=== PATIENT | female | born 1995 | race American Indian/Alaskan Native ===

== ENCOUNTER 2017-08-13 19:50 | Emergency (ER) | payer MEDICAID ==
[2017-08-13] MEDS ORDERED: TYLENOL PO ONE (21:35)
[2017-08-13 21:54] LABS: Basophils % (Auto) 0.7 % (0.0-1.8); Eosinophils % (Auto) 2.5 % (0.0-4.3); Hematocrit 32.8 % (30.3-42.9); Mean Corpuscular HGB Conc 34 % (30-34); Mean Corpuscular Hemoglobin 29 pg (28-32); Mean Corpuscular Volume 87 fl (79-97); Platelet Count 229 K/mm3 (140-440); Red Blood Count 3.76 M/mm3 (3.65-5.03); Red Cell Distribution Width 15.1 % (13.2-15.2); White Blood Count 8.3 K/mm3 (4.5-11.0)
[2017-08-13 22:22] LABS: Bilirubin,Urine NEG (Negative); Blood,Urine NEG (Negative); Ketones,Urine NEG (Negative); Leukocyte Esterase,Urine MOD (Negative); Mucus,Urine FEW /HPF; Nitrite,Urine NEG (Negative); Urobilinogen,Urine < 2.0 mg/dL (<2.0)
--- NOTE | 2017-08-13 22:47 | Emergency Department Report ---
ED Abdominal Pain HPI - General Chief Complaint: Abdominal Pain Stated Complaint: ABD PAIN Time Seen by Provider: 08/13/17 21:27 Source: patient, EMS Mode of arrival: Stretcher Limitations: No Limitations - History of Present Illness Initial Comments: pt is 9 weeks presents for abdominal urinary frequency and urgency seen by [facility]BG[facility], advised intact nothing was wrong, no states urinary frequency urgency and burning with urinations x 2 days pt denies vaginal bleeding no vaginal pain no pelvic pain no fever chills or n/ MD Complaint: abdominal pain Onset/Timin -: days(s) Location: L flank Radiation: L flank Migration to: L flank Severity: moderate Severity scale (0 -10): 6 Quality: aching Consistency: intermittent Improves With: nothing Worsens With: other (voiding ) Associated Symptoms: denies: nausea, vomiting, diarrhea, fever, chills, constipation, dysuria, hematemesis, hematochezia, melena, hematuria, anorexia, syncope - Related Data LMP (females 10-50): 2 months Previous Rx's Medication Instructions Recorded Last Taken Type Cephalexin [Keflex] 500 mg PO Q12HR #20 cap 08/13/17 Unknown Rx Allergies Allergy/AdvReac Type Severity Reaction Status Date / Time No Known Allergies Allergy Verified 11/23/14 06:43 ED Review of Systems ROS: Stated complaint: ABD PAIN Other details as noted in HPI Constitutional: denies: chills, fever Eyes: denies: eye pain, eye discharge, vision change ENT: as per HPI Respiratory: denies: cough, shortness of breath, wheezing Cardiovascular: denies: chest pain, palpitations Endocrine: no symptoms reported Gastrointestinal: abdominal pain. denies: nausea, diarrhea Genitourinary: urgency, dysuria, frequency. denies: hematuria, discharge, abnormal menses, dyspareunia Musculoskeletal: denies: back pain, joint swelling, arthralgia Skin: denies: rash, lesions Neurological: denies: headache, weakness, paresthesias Psychiatric: denies: anxiety, depression Hematological/Lymphatic: denies: easy bleeding, easy bruising ED Past Medical Hx - Past Medical History Previous Medical History?: Yes Hx Psychiatric Treatment: Yes Hx Asthma: Yes - Surgical History Past Surgical History?: No - Social History Substance Use Type: None - Medications Home Medications: Home Medications Medication Instructions Recorded Confirmed Last Taken Type Cephalexin [Keflex] 500 mg PO Q12HR #20 cap 08/13/17 Unknown Rx ED Physical Exam - General Limitations: No Limitations General appearance: alert, in no apparent distress - Head Head exam: Present: atraumatic, normocephalic - Eye Eye exam: Present: normal appearance, PERRL, EOMI - ENT ENT exam: Present: mucous membranes moist - Neck Neck exam: Present: normal inspection - Respiratory Respiratory exam: Present: normal lung sounds bilaterally. Absent: respiratory distress - Cardiovascular Cardiovascular Exam: Present: regular rate, normal rhythm. Absent: systolic murmur, diastolic murmur, rubs, gallop - GI/Abdominal GI/Abdominal exam: Present: normal bowel sounds. Absent: distended, tenderness , guarding, rebound, rigid, mass, bruit, hernia - Rectal Rectal exam: Present: deferred - External exam: Present: other (exam deferred per patient ) - Extremities Exam Extremities exam: Present: normal inspection - Back Exam Back exam: Present: normal inspection, full ROM. Absent: tenderness, CVA tenderness (R), CVA tenderness (L), muscle spasm, paraspinal tenderness, vertebral tenderness - Neurological Exam Neurological exam: Present: alert, oriented X3, CN II-XII intact, normal gait, reflexes normal. Absent: motor sensory deficit - Psychiatric Psychiatric exam: Present: normal affect, normal mood - Skin Skin exam: Present: warm, dry, intact, normal color. Absent: rash ED Course Vital Signs 08/13/17 19:51 Temperature 98.3 F Pulse Rate 86 Respiratory 20 Rate Blood Pressure 115/7 O2 Sat by Pulse 99 Oximetry ED Medical Decision Making - Lab Data Result diagrams: 08/13/17 21:36 Laboratory Tests 08/13/17 08/13/17 08/13/17 21:34 21:36 21:36 WBC 8.3 RBC 3.76 Hgb 11.0 Hct 32.8 MCV 87 MCH 29 MCHC 34 RDW 15.1 Plt Count 229 Lymph % (Auto) 24.7 [place] % (Auto) 6.0 Eos % (Auto) 2.5 Baso % (Auto) 0.7 Lymph # 2.0 [place] # 0.5 Eos # 0.2 Baso # 0.1 Seg Neutrophils % 66.1 Seg Neutrophils # 5.5 HCG, Quant [id number] H Urine Color Yellow Urine Turbidity Clear Urine pH 7.0 Ur Specific [place] 1.026 Urine Protein 30 mg/dl Urine Glucose (UA) Neg Urine Ketones Neg Urine Blood Neg Urine Nitrite Neg Urine Bilirubin Neg Urine Urobilinogen < 2.0 Ur Leukocyte Esterase Mod Urine WBC (Auto) 25.0 H Urine RBC (Auto) 4.0 U Epithel Cells (Auto) 8.0 Urine WBC Clumps 1+ Urine Mucus Few - Medical Decision Making pt is 9 weeks presents for abdominal urinary frequency and urgency seen by [facility], advised intact nothing was wrong, no states urinary frequency urgency and burning with urinations x 2 days pt denies vaginal bleeding no vaginal pain no pelvic pain no fever chills or n/v pt exam: abd large round soft bs normal no tenderness no rebound no point tenderness no flank or cva tenderness pt refuses vaginal exam US of abd or transvaginal as she had them 2 days ago with [facility] , HCG noted ua; pos wbc lueks, plan: will tx of UTI pt will follow up with [facility] in 2 days will call tomorrow to setup appoint, pt verbalized agreement and understanding with same. Critical care attestation.: If time is entered above; I have spent that time in minutes in the direct care of this critically ill patient, excluding procedure time. ED Disposition Clinical Impression: UTI (urinary tract infection) during Qualifiers: Trimester: first trimester Qualified Code(s): O23.41 - Unspecified infection of urinary tract in , first trimester Abdominal pain during Qualifiers: Trimester: first trimester Qualified Code(s): O26.891 - Other specified related conditions, first trimester; R10.9 - Unspecified abdominal pain; R10.9 - Unspecified abdominal pain Disposition: DC- TO HOME OR SELFCARE Is pt being admited?: No Does the pt Need Aspirin: No Condition: Good Instructions: Abdominal Pain (ED), Urinary Tract Infection in Women (ED) Additional Instructions: follow up with [facility] in 2 days Prescriptions: Cephalexin [Keflex] 500 mg PO Q12HR #20 cap Referrals: PRIMARY CARE, [Primary Care Provider] - 3-5 Days Forms: Work/School Release Form(ED) Time of Disposition: 22:52
[2017-08-13 23:00] VITALS: BP 124/80
== END 2017-08-13 22:59 | disposition home or self-care (01) ==
LOC: ED 19:50
DX: O23.41 Unspecified infection of urinary tract in pregnancy, first trimester (principal); N39.0 Urinary tract infection, site not specified; O26.891 Other specified pregnancy related conditions, first trimester; Z3A.09 9 weeks gestation of pregnancy
CPT/HCPCS: 36415; 81001; 84702; 85025

== ENCOUNTER 2017-11-14 20:56 | Outpatient (CLI) | payer MEDICAID ==
[2017-11-14] MEDS ORDERED: LACTATED RINGERS 1,000 ML IV ONE (21:09)
[2017-11-14] MEDS ORDERED: NORMOSOL-R PH 7.4 1,000 ML IV ONE (21:11)
[2017-11-14 21:21] VITALS: BP 117/56
== END 2017-11-14 22:39 | disposition home or self-care (01) ==
LOC: TRG 20:56
PROVIDERS: ATTEND Obstetrics & Gynecology
DX: O26.892 Other specified pregnancy related conditions, second trimester (principal); R10.9 Unspecified abdominal pain; Z3A.23 23 weeks gestation of pregnancy